=== PATIENT | female | born 1940 | race Caucasian/White ===

== ENCOUNTER 2019-06-20 09:06 | Inpatient (IN) | payer MEDICARE ==
[~2019-06-20] VITALS: Ht 142.2 cm; Wt 81.7 kg
[2019-06-20 09:38] LABS: BASOPHILS ABSOLUTE AUTO 0.04 K/mm3 (0.00-0.23); BASOPHILS PERCENT AUTO 0 % (0-2); EOSINOPHILS PERCENT AUTO 2 % (0-6); Hematocrit 47.3 % (33.0-51.0); Hemoglobin 15.2 g/dL (11.5-16.0); IMMATURE GRAN ABSOLUTE AUTO 0.04 K/mm3 (0.00-0.10); IMMATURE GRAN PERCENT AUTO 0 % (0-1); LYMPHOCYTES PERCENT AUTO 15 % (21-46); MONOCYTES ABSOLUTE AUTO 0.82 K/mm3 (0.16-1.47); MONOCYTES PERCENT AUTO 8 % (4-13); Mean Corpuscular HGB 30.6 pg (26.0-34.0); Mean Corpuscular HGB Conc 32.1 g/dL (31.5-36.5); Mean Corpuscular Volume 95 fL (80-100); Mean Platelet Volume 10.4 fL (9.1-12.4); NEUTROPHILS ABSOLUTE AUTO 7.71 K/mm3 (1.96-9.15); NEUTROPHILS PERCENT AUTO 75 % (41-73); Platelet Count 238 K/mm3 (150-400); RDW Coefficient Variation 12.8 % (11.7-14.2); RDW Standard Deviation 45.1 fL (35.1-46.3); Red Blood Cell Count 4.97 M/mm3 (3.80-5.20); White Blood Cell Count 10.31 K/mm3 (4.00-11.30)
[2019-06-20 09:51] LABS: Alanine Aminotransfer (ALT/SGP 31 U/L (12-78); Albumin, Blood 3.4 g/dL (3.4-5.0); Albumin/Globulin Ratio 0.8 (0.8-1.8); Alk Phos 96 U/L (50-136); Anion Gap 6 mmol/L (6-16); Aspartate Aminotrans (AST/SGOT 19 U/L (12-37); Bilirubin, Total 0.7 mg/dL (0.1-1.0); Blood Urea Nitrogen 20 mg/dL (8-24); CO2, Blood 28 mmol/L (21-32); Calcium, Blood 9.1 mg/dL (8.5-10.1); Chloride, Blood 108 mmol/L (98-108); Creatinine, Blood 0.83 mg/dL (0.40-1.00); Globulin, Blood 4.2 g/dL (2.2-4.0); Glomerular Filtration Rate >60 (60-); Glucose, Blood 144 mg/dL (70-99); Potassium, Blood 3.7 mmol/L (3.5-5.5); Sodium, Blood 142 mmol/L (136-145); Total Protein, Blood 7.6 g/dL (6.4-8.2); Troponin I 0.133 ng/mL (0.000-0.040)
[2019-06-20 10:57] LABS: Influenza A Negative (NEGATIVE); Influenza B Negative (NEGATIVE)
[2019-06-20] MEDS ORDERED: Lopressor 50 mg50 MG PO (13:51)
[2019-06-20] MEDS ORDERED: AMLODIPINE BES2.5 MG PO (13:54)
[2019-06-20] MEDS ORDERED: SYNTHROID100 MCG PO (14:01)
[2019-06-20] MEDS ORDERED: LOSARTAN POTASS50 MG PO (14:03)
[2019-06-20] MEDS ORDERED: BROMFENAC SODI1.7 ML OP (14:03)
[2019-06-20] MEDS ORDERED: ANAS1 (14:05)
[2019-06-20] MEDS ORDERED: VENL37.5ER (14:06)
[2019-06-20] MEDS ORDERED: DORZOPSO (14:07)
[2019-06-20] MEDS ORDERED: CALCIUM 600 +1 EA11 PO (14:09)
[2019-06-20] MEDS ORDERED: THERA-D2000 UNIT PO (14:10)
--- NOTE | 2019-06-20 15:48 | NUR ---
PT ARRIVED VIA STRETCHER FROM ER AND TRANSFER SELF TO BED; PT ON 2 L NC W/ O2 SATS >93; PT A&O; STATES SHE FEELS MUCH IMPROVED FROM EARLIER TODAY; DYSPNEA UPON EXERTION; SPOUSE AND SON AT BEDSIDE; PT ANSWERED ADMIT QUESTIONS APPROPRIATELY; SMILING AND JOKING; PT DENIES CHEST PAIN; DENIES NEEDS AT THIS TIME; HALF SANDWICH BROUGHT FROM PANTRY FOR PT AND ICE WATER TO DRINK; CALL LIGHT IN REACH; BED IN LOWEST POSITION; WILL CONTINUE TO MONITOR CLOSELY
--- NOTE | 2019-06-20 16:12 | NUR ---
Echocardiogram completed. Dr. Mazariegos briefed on findings and will read SERGE.
--- NOTE | 2019-06-20 18:20 | NUR ---
PT PREPARED FOR [facility] TRANSFER TO [facility]; PT A&O; AT BEDSIDE EDUCATING PT; SON AND SPOUSE PRESENT AND LEFT AHEAD OF PT TO GO TO [place]; PT ON 2L NC; DYSPNEA UPON EXERTION; PT SELF TRANSFERED TO [facility] ALL BELONGINGS SENT W/ PT; PT HOLDING HER CELL PHONE; REPORT CALLED AND GIVEN TO VIVEK MARYANN [id number]
--- NOTE | 2019-06-20 18:48 | NUR ---
UPDATE PT ALERT; LOOKING MUCH IMPROVED; ANSWERED QUESTIONS APPROPRIATELY TODAY; WAITING TO TRANSFER TO MED FLOOR; DAUGHTER WAS IN TO SEE PT TODAY; PT ON RA; O2 SATS >93; EXTREMITIES WARM; VSS; DENIES PAIN; WILL CONTINUE TO MONITOR UNTIL HAND OFF TO NOC RN
== END 2019-06-20 18:25 | disposition short-term general hospital (02) | DRG 280 ==
LOC: ER 09:06 → PCU 11:43
PROVIDERS: Emergency Medicine; ADMIT Internal Medicine
DX: I11.0 Hypertensive heart disease with heart failure (principal); J96.01 Acute respiratory failure with hypoxia; I21.A1 Myocardial infarction type 2; I50.31 Acute diastolic (congestive) heart failure; Z90.09 Acquired absence of other part of head and neck; E03.9 Hypothyroidism, unspecified; D15.1 Benign neoplasm of heart
CPT/HCPCS: 36415; 71046; 80053; 83735; 83880; 84145; 84443; 84484; 85025; 85651; 86140; 87040; 87804; 93005; 93010; 93306; 94640; 96365; 96375; 99285-25; J1650; J1940; J2930; J3475

== ENCOUNTER 2019-07-10 13:41 | Emergency (ER) | payer MEDICARE ==
[~2019-07-10] VITALS: Ht 142.2 cm; Wt 77.1 kg
[~2019-07-10 13:41] MED LIST: AMLODIPINE BES2.5 MG PO; ANAS1; BROMFENAC SODI1.7 ML OP; CALCIUM 600 +1 EA11 PO; DORZOPSO; LOSARTAN POTASS50 MG PO; Lopressor 50 mg50 MG PO; SYNTHROID100 MCG PO; THERA-D2000 UNIT PO; VENL37.5ER
[2019-07-10 14:29] LABS: BASOPHILS ABSOLUTE AUTO 0.06 K/mm3 (0.00-0.23); BASOPHILS PERCENT AUTO 1 % (0-2); EOSINOPHILS PERCENT AUTO 7 % (0-6); Hematocrit 34.3 % (33.0-51.0); Hemoglobin 10.9 g/dL (11.5-16.0); IMMATURE GRAN ABSOLUTE AUTO 0.06 K/mm3 (0.00-0.10); IMMATURE GRAN PERCENT AUTO 1 % (0-1); LYMPHOCYTES ABSOLUTE AUTO 1.12 K/mm3 (0.84-5.20); LYMPHOCYTES PERCENT AUTO 15 % (21-46); MONOCYTES ABSOLUTE AUTO 0.72 K/mm3 (0.16-1.47); MONOCYTES PERCENT AUTO 10 % (4-13); Mean Corpuscular HGB 30.4 pg (26.0-34.0); Mean Corpuscular HGB Conc 31.8 g/dL (31.5-36.5); Mean Corpuscular Volume 96 fL (80-100); Mean Platelet Volume 9.5 fL (9.1-12.4); NEUTROPHILS ABSOLUTE AUTO 4.89 K/mm3 (1.96-9.15); NEUTROPHILS PERCENT AUTO 67 % (41-73); Platelet Count 307 K/mm3 (150-400); RDW Coefficient Variation 13.9 % (11.7-14.2); RDW Standard Deviation 48.5 fL (35.1-46.3); Red Blood Cell Count 3.58 M/mm3 (3.80-5.20); White Blood Cell Count 7.35 K/mm3 (4.00-11.30)
[2019-07-10 15:02] LABS: Alanine Aminotransfer (ALT/SGP 61 U/L (12-78); Albumin, Blood 3.1 g/dL (3.4-5.0); Albumin/Globulin Ratio 0.8 (0.8-1.8); Alk Phos 91 U/L (50-136); Anion Gap 7 mmol/L (6-16); Aspartate Aminotrans (AST/SGOT 39 U/L (12-37); Bilirubin, Total 0.4 mg/dL (0.1-1.0); Blood Urea Nitrogen 20 mg/dL (8-24); Bun/Creatinine Ratio 27.5 (12.0-20.0); CO2, Blood 27 mmol/L (21-32); Calcium, Blood 9.3 mg/dL (8.5-10.1); Chloride, Blood 107 mmol/L (98-108); Creatinine, Blood 0.73 mg/dL (0.40-1.00); Glomerular Filtration Rate >60 (60-); Glucose, Blood 92 mg/dL (70-99); Potassium, Blood 4.1 mmol/L (3.5-5.5); Sodium, Blood 141 mmol/L (136-145); Total Protein, Blood 7.1 g/dL (6.4-8.2); Troponin I 0.052 ng/mL (0.000-0.040)
[2019-07-10] MEDS ORDERED: NITR.4SL SL (19:01)
[2019-07-10] MEDS ORDERED: FLUARIX QU60 MCG/0.7 IM (19:01)
== END 2019-07-10 17:05 | disposition home or self-care (01) ==
LOC: ER 13:41
PROVIDERS: Physician Assistant
DX: J90 Pleural effusion, not elsewhere classified (principal); D15.1 Benign neoplasm of heart; I10 Essential (primary) hypertension; Z95.2 Presence of prosthetic heart valve; Z85.3 Personal history of malignant neoplasm of breast; Z79.899 Other long term (current) drug therapy
CPT/HCPCS: 36415; 71046; 80053; 83880; 84484; 85025; 93005; 93010; 99285-25; A9270-GY

== ENCOUNTER → 2019-08-25 | Outpatient (CLI) | payer MEDICARE ==
[~2019-08-25] MED LIST changes: +FLUARIX QU60 MCG/0.7 IM; +NITR.4SL SL
[2019-08-25 12:46] LABS: BASOPHILS ABSOLUTE AUTO 0.05 K/mm3 (0.00-0.23); BASOPHILS PERCENT AUTO 1 % (0-2); EOSINOPHILS ABSOLUTE AUTO 0.23 K/mm3 (0.00-0.68); EOSINOPHILS PERCENT AUTO 4 % (0-6); Hematocrit 44.6 % (33.0-51.0); Hemoglobin 14.6 g/dL (11.5-16.0); IMMATURE GRAN ABSOLUTE AUTO 0.01 K/mm3 (0.00-0.10); IMMATURE GRAN PERCENT AUTO 0 % (0-1); LYMPHOCYTES ABSOLUTE AUTO 1.31 K/mm3 (0.84-5.20); LYMPHOCYTES PERCENT AUTO 23 % (21-46); MONOCYTES ABSOLUTE AUTO 0.51 K/mm3 (0.16-1.47); MONOCYTES PERCENT AUTO 9 % (4-13); Mean Corpuscular HGB 29.7 pg (26.0-34.0); Mean Corpuscular HGB Conc 32.7 g/dL (31.5-36.5); Mean Corpuscular Volume 91 fL (80-100); Mean Platelet Volume 10.4 fL (9.1-12.4); NEUTROPHILS ABSOLUTE AUTO 3.57 K/mm3 (1.96-9.15); NEUTROPHILS PERCENT AUTO 63 % (41-73); Platelet Count 224 K/mm3 (150-400); RDW Coefficient Variation 13.1 % (11.7-14.2); RDW Standard Deviation 43.7 fL (35.1-46.3); Red Blood Cell Count 4.91 M/mm3 (3.80-5.20); White Blood Cell Count 5.68 K/mm3 (4.00-11.30)
[2019-08-25 13:02] LABS: Anion Gap 9 mmol/L (6-16); Blood Urea Nitrogen 9 mg/dL (8-24); Bun/Creatinine Ratio 12.2 (12.0-20.0); CO2, Blood 29 mmol/L (21-32); Calcium, Blood 9.3 mg/dL (8.5-10.1); Chloride, Blood 105 mmol/L (98-108); Creatinine, Blood 0.74 mg/dL (0.40-1.00); Glomerular Filtration Rate >60 (60-); Glucose, Blood 99 mg/dL (70-99); Potassium, Blood 3.8 mmol/L (3.5-5.5); Sodium, Blood 143 mmol/L (136-145); Troponin I 0.037 ng/mL (0.000-0.040)
== END | disposition home or self-care (01) ==
LOC: LAB EV 12:42 → LAB SHORT 12:42
PROVIDERS: Family Medicine
DX: R06.00 Dyspnea, unspecified (principal)
CPT/HCPCS: 80048; 83880; 84484; 85025

== ENCOUNTER 2022-01-11 07:25 | Emergency (ER) | payer MEDICARE ==
[~2022-01-11] VITALS: Ht 142.2 cm; Wt 77.1 kg
[2022-01-11 08:08] LABS: BASOPHILS ABSOLUTE AUTO 0.06 K/mm3 (0.00-0.23); BASOPHILS PERCENT AUTO 1 % (0-2); EOSINOPHILS ABSOLUTE AUTO 0.36 K/mm3 (0.00-0.68); EOSINOPHILS PERCENT AUTO 6 % (0-6); Hematocrit 43.9 % (33.0-51.0); Hemoglobin 14.9 g/dL (11.5-16.0); IMMATURE GRAN ABSOLUTE AUTO 0.02 K/mm3 (0.00-0.10); IMMATURE GRAN PERCENT AUTO 0 % (0-1); LYMPHOCYTES PERCENT AUTO 30 % (21-46); MONOCYTES ABSOLUTE AUTO 0.62 K/mm3 (0.16-1.47); MONOCYTES PERCENT AUTO 10 % (4-13); Mean Corpuscular HGB 30.4 pg (26.0-34.0); Mean Corpuscular HGB Conc 33.9 g/dL (31.5-36.5); Mean Corpuscular Volume 90 fL (80-100); NEUTROPHILS ABSOLUTE AUTO 3.33 K/mm3 (1.96-9.15); NEUTROPHILS PERCENT AUTO 53 % (41-73); Platelet Count 229 K/mm3 (150-400); RDW Coefficient Variation 13.1 % (11.7-14.2); White Blood Cell Count 6.29 K/mm3 (4.00-11.30)
[2022-01-11] MEDS ORDERED: AMLODIPINE BESYL5 MG PO (08:20)
[2022-01-11] MEDS ORDERED: POTA10T PO (08:22)
[2022-01-11] MEDS ORDERED: ASPI81CH PO (08:22)
[2022-01-11] MEDS ORDERED: GLUC500 PO (08:22)
[2022-01-11] MEDS ORDERED: FUROSEMIDE40 MG PO (08:23)
[2022-01-11] MEDS ORDERED: Norco 5-325 Ta1 EACH PO (08:23)
[2022-01-11] MEDS ORDERED: KLOR-CON 1010 ME8 PO (08:24)
[2022-01-11] MEDS ORDERED: FLUT1DIS2 INH (08:25)
[2022-01-11] MEDS ORDERED: ATROVENT HFA12.9 GM INH (08:25)
[2022-01-11 08:30] LABS: Albumin, Blood 3.6 g/dL (3.4-5.0); Albumin/Globulin Ratio 0.8 (0.8-1.8); Bilirubin, Total 0.5 mg/dL (0.1-1.0); Bun/Creatinine Ratio 19.8 (12.0-20.0); Calcium, Blood 9.4 mg/dL (8.5-10.1); Creatinine, Blood 0.81 mg/dL (0.40-1.00); Globulin, Blood 4.3 g/dL (2.2-4.0); Potassium, Blood 3.4 mmol/L (3.5-5.5); Total Protein, Blood 7.9 g/dL (6.4-8.2)
== END 2022-01-11 10:39 | disposition home or self-care (01) ==
LOC: ER 07:25
PROVIDERS: Emergency Medicine
DX: R07.9 Chest pain, unspecified (principal); I51.7 Cardiomegaly
CPT/HCPCS: 36415; 71045; 80053; 83690; 84484; 85025